=== PATIENT | female | born 1950 | race American Indian/Alaskan Native ===

== ENCOUNTER 2017-11-17 06:52 | Day surgery (SDC) | payer MEDICARE ==
[2017-11-17 07:18] VITALS: BMI 22.1
[2017-11-17] MEDS ORDERED: Propofol 10 mg/ml Inj (20 ML) ONE (08:33)
[2017-11-17] MEDS ORDERED: Lidocaine Hydrochloride 5 ML INJ ONE (08:33)
[2017-11-17] MEDS ORDERED: Lactated Ringer's 1,000 ML IV ONE (08:35)
[2017-11-17 08:47] VITALS: O2SAT 100
[2017-11-17 09:39] VITALS: TEMP 97.8
[2017-11-17 10:26] VITALS: BP 159/53; PULSE 56; RESP 12
== END 2017-11-17 10:24 | disposition home or self-care (01) ==
LOC: C.ENDO 06:52
PROVIDERS: ATTEND Internal Medicine Gastroenterology
DX: Z12.11 Encounter for screening for malignant neoplasm of colon (principal); R63.4 Abnormal weight loss; D12.5 Benign neoplasm of sigmoid colon; K63.5 Polyp of colon; K57.90 Diverticulosis of intestine, part unspecified, without perforation or abscess without bleeding; K64.1 Second degree hemorrhoids; I10 Essential (primary) hypertension; E78.5 Hyperlipidemia, unspecified; Z85.43 Personal history of malignant neoplasm of ovary; Z92.21 Personal history of antineoplastic chemotherapy; Z79.899 Other long term (current) drug therapy; F17.210 Nicotine dependence, cigarettes, uncomplicated; K44.9 Diaphragmatic hernia without obstruction or gangrene; K25.9 Gastric ulcer, unspecified as acute or chronic, without hemorrhage or perforation; K29.50 Unspecified chronic gastritis without bleeding; D49.0 Neoplasm of unspecified behavior of digestive system; K26.9 Duodenal ulcer, unspecified as acute or chronic, without hemorrhage or perforation
CPT/HCPCS: 43239; 45380; 45385; 88305; 88313; 88342; J2704; J7120

== ENCOUNTER 2017-12-02 08:36 | Day surgery (SDC) | payer MEDICARE ==
[2017-12-02] MEDS ORDERED: Lactated Ringer's 1,000 ML IV ONE (12:22)
[2017-12-02] MEDS ORDERED: Propofol 10 mg/ml Inj (20 ML) ONE ×3 (12:47→13:26)
--- NOTE | 2017-12-02 12:51 | CP.SDSHP ---
Same Day Surgery H & P - History Proposed Procedure: egd/eus Pre-Op Diagnosis: submucosal lesion of stomach - Allergies Allergies: Allergies No Known Allergies Allergy (Verified 12/02/17 09:39) - Physical Exam General Appearance: nl Vital Signs: Vital Signs 12/02/17 12/02/17 08:40 12:23 Temperature 97.3 F L 97.3 F L Pulse Rate 66 66 Respiratory 18 18 Rate Blood Pressure 149/52 L 149/52 L O2 Sat by Pulse 100 100 Oximetry Mental Status: Alert & Oriented x3 Neuro: WNL Heart: WNL Lungs: WNL GI: WNL - {Optional Preform as Required} Abdomen: WNL - Impression Impression: submucosal lesion of stomach Pt. Evaluated Today:Candidate for Anesthesia & Procedure: Yes Short Stay Discharge - Short Stay Discharge Admitting Diagnosis/Reason for Visit: OTHER SPECIFIED DISEASES OF ESOPHAGUS Disposition: HOME/ ROUTINE
[2017-12-02 13:56] VITALS: TEMP 97.8
[2017-12-02] MEDS ORDERED: Lidocaine Hydrochloride 5 ML INJ ONE (14:01)
[2017-12-02 14:40] VITALS: BP 130/62; PULSE 65; RESP 13; O2SAT 98
== END 2017-12-02 15:00 | disposition home or self-care (01) ==
LOC: C.ENDO 08:36
PROVIDERS: ATTEND Internal Medicine
DX: D49.0 Neoplasm of unspecified behavior of digestive system (principal); K44.9 Diaphragmatic hernia without obstruction or gangrene
CPT/HCPCS: 43239; 84233; 88305; 88342; J2704; J7120